=== PATIENT | male | born 1960 | race Caucasian/White ===

== ENCOUNTER 2018-05-14 17:24 | Inpatient (IN) | payer OTHER ==
[~2018-05-14] VITALS: Ht 182.9 cm; Wt 97.0 kg
--- NOTE | 2018-05-14 17:25 | NUR ---
ACTIVITY DIRECTOR: STEMI ALERT FROM [facility] AT 1706, HOSPITAL STEMI PRE-ALERT CALLED AT 1707
[2018-05-14] MEDS ORDERED: ASPIRIN 325 MG TABLET PO STA (17:29)
[2018-05-14] MEDS ORDERED: HEPARIN 1,000 UNITS/ML, 1ML IVPush ONE (17:30)
[2018-05-14] MEDS ORDERED: MIDAZOLAM 1 MG/ML, 2ML ONE (17:32)
[2018-05-14] MEDS ORDERED: VERAPAMIL 2.5 MG/ML, 2ML ONE (17:32)
[2018-05-14] MEDS ORDERED: HEPARIN 1,000 UNITS/ML, 10ML ONE (17:32)
[2018-05-14] MEDS ORDERED: BIVALIRUDIN 250 MG ONE (17:32)
[2018-05-14] MEDS ORDERED: TICAGRELOR 90 MG TABLET ONE (17:32)
[2018-05-14] MEDS ORDERED: FENTANYL PF 100 MCG/2ML ONE (17:32)
[2018-05-14] MEDS ORDERED: LIDOCAINE 2%, 20ML ONE (17:33)
--- NOTE | 2018-05-14 17:39 | NUR ---
PT. ARRIVES BY [facility]. PT. CALLED WITH C/O SUBSTERNAL CHEST PAIN. EMS INICIATED A CODE CARDIAC FROM THE FIELD. ENROBING MACHINE FEEDER TEAM IS WAITING. ER TEAM IS AT THE BEDSIDE. PT. ARRIVES A & O X 4 WITH C/O LEFT HAND PAIN. 12 LEAD EKG WAS DONE. PT. HAS THE CP MONITOR IN PLACE. PT. RECEIVED 324 MG ASA UNDER WATER ASSISTANT WELL 100 MCG FENTANYL. PT. HAS 2 IVS ESTABLISHED IN THE FIELD, #18G IN BIL ACS. PT. IS RESTING WITH THE HOB ELEVATED GREATER THAN 30 DEGREES. PT. IS UNDRESSED AND BELONGINGS WERE PLACED IN 2 BAGS THAT WERE LABELED. PT.'S LABS WERE DRAWN AND SENT. PCXR WAS DONE. PT. IS PINK, WARM AND DRY WITH RESP EUPNEIC.
--- NOTE | 2018-05-14 17:42 | NUR ---
CODE CARDIAC CALLED @ 1707 [facility] CALLED IN @ 1725 PATIENT ARRIVED @ 1725
[2018-05-14 17:49] LABS: BASOPHILS # (AUTO) 0.02 x10^3/uL (0-0.1); BASOPHILS % (AUTO) 0 % (0-1); EOSINOPHILS # (AUTO) 0.03 x10^3/uL (0-0.4); EOSINOPHILS % (AUTO) 0 % (1-7); LYMPHOCYTES # (AUTO) 0.89 x10^3/uL (1-3.4); LYMPHOCYTES % (AUTO) 6 % (22-44); MD NO; MEAN CORPUSCULAR HEMOGLOBIN 32.7 pg (27.5-34.5); MEAN CORPUSCULAR VOLUME 96.1 fL (81-97); MEAN PLATELET VOLUME 9.9 fL (7.4-10.4); MONOCYTES # (AUTO) 0.69 x10^3/uL (0.2-0.8); MONOCYTES % (AUTO) 5 % (2-9); NEUTROPHILS # (AUTO) 13.71 x10^3/uL (1.8-6.8); NEUTROPHILS % (AUTO) 89 % (42-75); PLATELET COUNT 214 x10^3/uL (130-400); RED BLOOD COUNT 4.58 x10^6/uL (4.38-5.82); RED CELL DISTRIBUTION WIDTH 13.3 % (9.4-14.8)
--- NOTE | 2018-05-14 17:51 | NUR ---
DIRECTOR FACILITIES MAINTENANCE: PT DEPARTING VIA LISA BY RN TO PREP COOK AT THIS TIME
[2018-05-14 17:57] LABS: INTERNATIONAL NORMALIZED RATIO 1.01 (0.93-1.1); PROTHROMBIN TIME 10.7 Seconds (9.6-11.5)
[2018-05-14] MEDS ORDERED: ASPIRIN 325 MG TABLET PO ONE (18:00)
[2018-05-14 18:01] LABS: TROPONIN I 0.037 ng/mL (0.000-0.045)
[2018-05-14] MEDS ORDERED: HEPARIN 5,000 UNITS/ML, 1ML ONE (18:05)
[2018-05-14] MEDS ORDERED: DOPAMINE/D5W PMX 250 ML ONE (18:24)
[2018-05-14] MEDS ORDERED: PHENYLEPHRINE 10 MG/ML ONE (18:24)
[2018-05-14] MEDS ORDERED: HEPARIN 5,000 UNITS/ML, 1ML IVPush ONE (18:30)
[2018-05-14] MEDS ORDERED: SODIUM CHLORIDE FLUSH 10ML SYR IVF PRN (18:30)
[2018-05-14] MEDS ORDERED: BIVALIRUDIN 250 MG in DEXTROSE 5% 100 ML IV SCH (18:45)
[2018-05-14] MEDS ORDERED: SODIUM CHLORIDE 0.9% 1,000 ML IV SCH (18:45)
[2018-05-14] MEDS ORDERED: PHENYLEPHRINE 10 MG in SODIUM CHLORIDE 0.9% 249 ML IV PRN (19:00)
[2018-05-14] MEDS ORDERED: POTASSIUM CHLORIDE 20 MEQ TAB.ER.PRT PO ONE (20:00)
[2018-05-14 21:08] LABS: HEMOGLOBIN A1C 5.4 % (4.2-6.3)
[2018-05-14] MEDS: TICAGRELOR 90 MG TABLET PO SCH (21:08)
[2018-05-14] MEDS: ATORVASTATIN 80 MG TABLET PO SCH (21:08)
[2018-05-15 04:00] VITALS: BP 123/71
[2018-05-15 04:52] LABS: ANION GAP 7 mmol/L (5-15); CALCIUM 9.2 mg/dL (8.5-10.1); CHLORIDE 109 mmol/L (98-107); CREATININE 0.81 mg/dL (0.7-1.3)
[2018-05-15] MEDS: TICAGRELOR 90 MG TABLET PO SCH ×2 (07:55→21:06)
[2018-05-15] MEDS: ASPIRIN 81 MG TABLET EC PO SCH (07:55)
[2018-05-15] MEDS: ISOSORBIDE MONONITRATE ER 30 MG TABLET PO SCH (07:56)
[2018-05-15] MEDS: METOPROLOL TARTRATE 25 MG TABLET PO SCH ×2 (09:01→17:00)
[2018-05-15 10:30] VITALS: BP 125/80
[2018-05-15] MEDS ORDERED: ACETAMINOPHEN 325 MG TABLET PO PRN (13:30)
[2018-05-15 13:40] VITALS: BP 101/61
[2018-05-15 16:59] VITALS: BP 107/61
[2018-05-15 19:23] VITALS: BP 93/56
[2018-05-15] MEDS: ATORVASTATIN 80 MG TABLET PO SCH (21:06)
[2018-05-16 03:24] VITALS: BP 94/55
[2018-05-16 05:17] VITALS: BP 116/69
[2018-05-16] MEDS: METOPROLOL TARTRATE 25 MG TABLET PO SCH ×2 (05:26→20:00)
[2018-05-16 05:52] LABS: ANION GAP 5 mmol/L (5-15); CALCIUM 8.6 mg/dL (8.5-10.1); CHLORIDE 110 mmol/L (98-107)
[2018-05-16 07:04] VITALS: BP 104/66
[2018-05-16] MEDS: TICAGRELOR 90 MG TABLET PO SCH ×2 (08:19→20:02)
[2018-05-16] MEDS: ASPIRIN 81 MG TABLET EC PO SCH (08:19)
[2018-05-16] MEDS: ISOSORBIDE MONONITRATE ER 30 MG TABLET PO SCH (08:19)
[2018-05-16] MEDS ORDERED: BIVALIRUDIN 250 MG ONE ×2 (11:30→12:49)
[2018-05-16] MEDS ORDERED: MIDAZOLAM 1 MG/ML, 5ML ONE (11:30)
[2018-05-16] MEDS ORDERED: TICAGRELOR 90 MG TABLET ONE (11:30)
[2018-05-16] MEDS ORDERED: VERAPAMIL 2.5 MG/ML, 2ML ONE (11:30)
[2018-05-16] MEDS ORDERED: FENTANYL PF 100 MCG/2ML ONE (11:30)
[2018-05-16] MEDS ORDERED: NITROGLYCERIN 5 MG/ML, 10ML ONE (11:30)
[2018-05-16] MEDS ORDERED: HEPARIN 1,000 UNITS/ML, 10ML ONE (11:31)
[2018-05-16] MEDS ORDERED: LIDOCAINE-MPF 2%, 2ML ONE (11:43)
[2018-05-16 15:00] VITALS: BP 96/51
[2018-05-16 20:00] VITALS: BP 112/63
[2018-05-16] MEDS: ATORVASTATIN 80 MG TABLET PO SCH (20:02)
[2018-05-16 20:05] VITALS: BP 99/56
[2018-05-17 02:10] VITALS: BP 112/63
[2018-05-17] MEDS: METOPROLOL TARTRATE 25 MG TABLET PO SCH ×2 (05:24→18:04)
[2018-05-17 06:16] LABS: ANION GAP 9 mmol/L (5-15); CALCIUM 8.9 mg/dL (8.5-10.1); CHLORIDE 110 mmol/L (98-107)
[2018-05-17 06:18] LABS: CREATININE 0.87 mg/dL (0.7-1.3)
[2018-05-17 07:00] VITALS: BP 106/63
[2018-05-17] MEDS: TICAGRELOR 90 MG TABLET PO SCH ×2 (09:09→20:30)
[2018-05-17] MEDS: ASPIRIN 81 MG TABLET EC PO SCH (09:09)
[2018-05-17] MEDS: ISOSORBIDE MONONITRATE ER 30 MG TABLET PO SCH (09:09)
[2018-05-17 14:32] VITALS: BP 95/56
[2018-05-17] MEDS ORDERED: METO25TA35 PO (15:59)
[2018-05-17] MEDS ORDERED: ASPI81TA45 PO (15:59)
[2018-05-17] MEDS ORDERED: ISOS30TA8 PO (15:59)
[2018-05-17] MEDS ORDERED: ATOR-2 PO (15:59)
[2018-05-17] MEDS ORDERED: TICA90TA PO (15:59)
[2018-05-17 18:05] VITALS: BP 106/62
[2018-05-17] MEDS: ATORVASTATIN 80 MG TABLET PO SCH (20:30)
[2018-05-17 20:39] VITALS: BP 106/63
== END 2018-05-17 22:41 | disposition home or self-care (01) | DRG 247 ==
LOC: ED 18:04 → EDIP 18:05 → ED 18:16 → CCU 19:21 → 5SO 05-15 10:20
PROVIDERS: ADMIT Internal Medicine Cardiovascular Disease; ATTEND Internal Medicine Cardiovascular Disease
PROC: 4A023N7 Measurement of Cardiac Sampling and Pressure, Left Heart, Percutaneous Approach (ICD-10-PCS; 2018-05-14)
PROC: B2111ZZ Fluoroscopy of Multiple Coronary Arteries using Low Osmolar Contrast (ICD-10-PCS; 2018-05-14)
PROC: B2151ZZ Fluoroscopy of Left Heart using Low Osmolar Contrast (ICD-10-PCS; 2018-05-14)
PROC: 027034Z Dilation of Coronary Artery, One Artery with Drug-eluting Intraluminal Device, Percutaneous Approach (ICD-10-PCS; principal; 2018-05-16)
DX: I21.19 ST elevation (STEMI) myocardial infarction involving other coronary artery of inferior wall (principal); E78.5 Hyperlipidemia, unspecified; I25.10 Atherosclerotic heart disease of native coronary artery without angina pectoris; I73.9 Peripheral vascular disease, unspecified; Z87.891 Personal history of nicotine dependence
CPT/HCPCS: 36415; 92920; 93458; 93571; C9600; 71045; 80047; 80048; 83036; 84484; 85014; 85018; 85025; 85610; 85730; 87081; 93005; 93306; 99156; 99157; C1769; C1894; G0378; J0583; J1265; J1644; J2250; J3010; J3490; 92928; C1725; C1874; C1887; J2370; Q9967